=== PATIENT | male | born 1950 | race Caucasian/White ===

== ENCOUNTER 2018-07-17 09:23 | Day surgery (SDC) | payer BC ==
[~2018-07-17 09:23] MED LIST: ACETAMINOPHEN 1,000 MG/100 ML BTL IV ONE; CEFAZOLIN 2 G in 0.9% SODIUM CHLORIDE 50ML 50 ML IM ONE
[2018-07-17] MEDS ORDERED: PROPOFOL 10 MG/ML VIAL IV ONE (09:24)
[2018-07-17] MEDS ORDERED: KETOROLAC 30 MG/ML VIAL IVP ONE (09:24)
[2018-07-17] MEDS ORDERED: EPHEDRINE SULFATE 50 MG/ML ML IV ONE (09:24)
[2018-07-17] MEDS ORDERED: MIDAZOLAM HCL 2MG/2ML VIAL IV ONE (09:24)
[2018-07-17] MEDS ORDERED: SEVOFLURANE 250 ML INH ONE (09:24)
[2018-07-17] MEDS ORDERED: BUPIVACAINE 0.5% W/EPI MPF 30 ML VIAL IVP ONE (09:24)
[2018-07-17] MEDS ORDERED: LIDOCAINE 2% MDV (20MG/ML) 20ML VIAL IV ONE (09:24)
[2018-07-17] MEDS ORDERED: FENTANYL PF 100MCG/2ML VIAL IV ONE (09:24)
[2018-07-17] MEDS ORDERED: ONDANSETRON HCL IV 4 MG/2 ML VIAL IVP ONE (09:24)
--- NOTE | 2018-07-19 11:53 | Operative Note ---
DATE OF SURGERY: 07/17/2018 PREOPERATIVE DIAGNOSIS: INTERNAL DERANGEMENT OF THE RIGHT KNEE. POSTOPERATIVE DIAGNOSES: 1. TEAR OF THE POSTERIOR HORN OF THE MEDIAL MENISCUS. 2. DIFFUSE SYNOVITIS. 3. CHONDRAL LESION MEDIAL FEMORAL CONDYLE JUST MEDIAL TO THE MIDLINE AT 45 DEGREES ABOUT THE SIZE OF A HALF-DOLLAR. 4. CHONDRAL LESION LATERAL FEMORAL CONDYLE JUST LATERAL TO THE MIDLINE AT 45 DEGREES OF FLEXION ABOUT THE SIZE OF A HALF-DOLLAR. PROCEDURE: 1. RIGHT KNEE ARTHROSCOPY WITH PARTIAL MEDIAL MENISCECTOMY. 2. RIGHT KNEE ARTHROSCOPY WITH COMPLETE SYNOVECTOMY. 2. RIGHT KNEE ARTHROSCOPY WITH CHONDROPLASTY OF THE MEDIAL FEMORAL CONDYLE AND LATERAL FEMORAL CONDYLE. STAFF SURGEON: DR. NILO BREAUX ANESTHESIA: GENERAL. PREPARATION: CHLORAPREP. INDIVIDUAL CONSIDERATIONS: NONE. PROCEDURE: The patient was taken to the Operating Room and placed supine on the operating table. He had a successful induction with general anesthetic. His right knee was prepped and then draped in the usual fashion. The patient had a superior lateral inflow cannula placed. The skin was infiltrated with 0.5% Marcaine with Epinephrine prior. A clear effusion was drained and the knee was inflated with normal saline. An inferior medial and an inferior lateral portal were made in a similar fashion. The arthroscope was introduced through the inferior lateral portal up into the pouch. The patellofemoral compartment showed moderate synovitis in the pouch and mild to moderate synovitis in both gutters. The patellofemoral joint looked good with normal tracking. Medially, he had a degenerative tear involving the posterior horn of the medial meniscus, which was about senior care through the meniscus. This was debrided back to a stable rim with a shaver and basket forceps. He had a large chondral lesion of the lateral femoral condyle just medial to the midline centered at about 45 degrees, about the size of a half-dollar with peeling cartilage. This was debrided back and it was unfortunately down to bone and this was debrided as a chondroplasty. In the notch, the cruciates were normal. Laterally, he had almost an identical lesion on the lateral femoral condyle lateral to the midline, 45 degrees, about the size of a half-dollar with peeling cartilage but most of this was not down to the bone, just small areas. This was debrided back to a stable rim. The meniscus laterally was intact. The knee was irrigated out with saline to remove loose floating debris. The portals were closed with warren. A synovectomy was performed in the pouch and both gutters prior. He had 80 mg DepoMedrol and 30 mL of 0.5% Marcaine with Epinephrine injected into the knee and a sterile Bulkee compressive dressing was applied. The patient tolerated the procedures well. Needle and sponge counts were correct. Estimated blood loss was minimal and he was taken back to Recovery in good condition. There were no complications. JOB NUMBER: [id number] MTDD
== END 2018-07-17 15:06 | disposition home or self-care (01) ==
LOC: SUR 09:23
PROVIDERS: ATTEND Orthopaedic Surgery
DX: S83.241A Other tear of medial meniscus, current injury, right knee, initial encounter (principal); M24.10 Other articular cartilage disorders, unspecified site; M65.9 Synovitis and tenosynovitis, unspecified; I48.91 Unspecified atrial fibrillation; M06.9 Rheumatoid arthritis, unspecified; E11.9 Type 2 diabetes mellitus without complications; I10 Essential (primary) hypertension; I25.10 Atherosclerotic heart disease of native coronary artery without angina pectoris; Z95.5 Presence of coronary angioplasty implant and graft
CPT/HCPCS: 29881; 29875; 01400; 36416; 82948; J1885; J2405; J3010; J0690